=== PATIENT | female | born 1990 | race Caucasian/White ===

== ENCOUNTER 2021-10-04 07:31 | Day surgery (SDC) | payer MEDICAID ==
[~2021-10-04] VITALS: Ht 160 cm; Wt 80.9 kg
[~2021-10-04 07:31] MED LIST: NORCO 325 MG-51 TAB PO; PERCOCET 325 MG1 TA2 PO; PRENATAL VITAMI1 TA5 PO
[2021-10-04 08:28] VITALS: BP 118/74; PULSE 71; TEMP 98.2
[2021-10-04] MEDS ORDERED: PERCOCET 325 MG1 TA3 PO ×2 (08:39→10:37)
[2021-10-04] MEDS ORDERED: PRILOSEC10 MG PO (08:40)
[2021-10-04] MEDS ORDERED: MOTRIN 600600 MG/TAB PO (10:37)
[2021-10-04 11:40] VITALS: BP 90/60; PULSE 69; TEMP 97.2
--- NOTE | 2021-10-04 11:40 | NUR ---
Pt returned via cart to [facility]. Spouse present upon return. X5 surgical sites c/d/i with exofin. VSS-see flowsheet. Pt lying on left side with warm blanket to abdomen. Drowsy,but arousable and oriented. Side rails up with call light in reach. Pt resting with eyes closed and appears to be more comfortable than in PACU and prior to pain meds administered.
[2021-10-04 11:55] VITALS: BP 100/51; PULSE 71
[2021-10-04 12:00] VITALS: BP 91/48; PULSE 62
[2021-10-04 12:08] VITALS: BP 90/60; PULSE 71
--- NOTE | 2021-10-04 12:50 | NUR ---
Pt VS remain stable-see flowsheet. Pt able to ambulate to bathroom and voided without difficulty. C/O significant pain in abdomen-see MAR. Teaching on post- op gas pains and importance of ambulation. Pt ambulated with SBA in unit hallways with this nurse. Tolerated apple juice and pudding. Pt voiced she feels ready to go home and has met criteria. IV removed and pressure dressing applied. Pt dressed. Discharge teaching completed, both pt and pts verbalized understanding. Pt taken via wheelchair to private vehicle for dc home with driving.
== END 2021-10-04 12:50 | disposition home or self-care (01) ==
LOC: SDCO 07:31
DX: K80.10 Calculus of gallbladder with chronic cholecystitis without obstruction (principal); F17.210 Nicotine dependence, cigarettes, uncomplicated
CPT/HCPCS: J0330; J1100; J2175; J2250; J2405; J2550; J2704; J3010; J7120; Q9967